=== PATIENT | female | born 1990 | race Caucasian/White ===

== ENCOUNTER 2024-01-23 06:24 | Emergency (ER) | payer MEDICAID, SELFPAY ==
[2024-01-23 06:25] VITALS: BP 136/96; PULSE 77; RESP 16; TEMP 36.3; O2SAT 100; BMI 28.6
--- NOTE | 2024-01-23 07:01 | EX.ED.DYSGE1 ---
HPI History of Present Illness Chief Complaint: Rash Detail of Chief Complaint: Generalized rash Informant: patient Onset/Context/Timing Onset: Weeks Context: Sudden Onset Timing: Continuous Quality: Generalized macular rash Location: Torso and extremities Current Severity: Moderate Maximum Severity: Moderate Worsened by: Unknown Relieved by: Nothing Associated Symptoms Associated Symptoms: None Narrative Narrative: Patient is a 33-year-old female who presents with a rash. She does complete a course of prednisone. When asked why she was on prednisone her response was they prescribed it to me. She denies fever, chills night sweats. She is pleasant on no medication. She has no allergies. She was instructed by the person to prescribe the prednisone not to shave her legs. She was instructed to change razors more frequently. Prior similar symptoms: No Recent Illness/Hospitalization: No PFSH PFSH Medical History no medical history no medical history Home Medications ?Medication ?Instructions ?Recorded ?Last Taken ?Type NK 01/23/24 Unknown History cephalexin 500 mg capsule 500 mg PO Q6 #28 CAPSULES 01/23/24 Unknown Rx sulfamethoxazole 800 1 tab PO BID #14 TABLETS 01/23/24 Unknown Rx mg-trimethoprim 160 mg tablet Allergy/AdvReac Type Severity Reaction Status Date / Time No Known Allergies Allergy Verified 01/23/24 06:25 Surgical History no surgical history no surgical history Social History Smoking Status: Never smoker ROS ROS ED Constitutional Constitutional ED: Denies chills, fever(s), subjective or sweats Gastrointestinal Gastrointestinal: Denies nausea or vomiting Musculoskeletal Musculoskeletal: Denies arthralgias or myalgias Integumentary Reports rash; Denies abscess or Abrasions EXAM Physical Exam Const Vital Signs: 01/23/24 06:25 Temperature 97.3 F L Temperature Source Temporal Pulse Rate 77 Respiratory Rate 16 Blood Pressure 136/96 H Blood Pressure Mean 109 Pulse Ox 100 Positive well nourished and well developed General Appearance ED: well developed and NAD HEENT Reports moist mucous membranes HEENT Narrative: Head is atraumatic normocephalic. Eyes PERRL and EOMs intact bilaterally Neck no lymphadenopathy, supple and no JVD Resp normal respiratory effort Cardio regular rate and regular rhythm Extremity Negative for normal to inspection Extremity Narrative: Rash consistent with folliculitis Neuro oriented x3 and CN's II-XII intact bilaterally Sensorium / Orientation: alert Skin Skin Narrative: Patient has a pustular rash noted on the extremities, torso. The lesions on the legs and arms have a hair follicle in the center of the lesion. There is no other abnormality noted. MDM MDM MDM Narrative Medical decision making narrative: Patient's rash consistent with folliculitis. There is no concern for cellulitis. There is no concern for allergy etc. Patient was treated with cephalexin and Bactrim. Discharge Plan Triage Chief Complaint: Rash ED Provider: Benjamín Schmitt Dx/Rx/DC Orders Clinical Impression: Folliculitis, Elevated blood-pressure reading, without diagnosis of hypertension Instructions: ED Folliculitis, ED Hypertension, To Be Confirmed Prescriptions: New sulfamethoxazole-trimethoprim 800-160 mg tablet 1 tab PO BID Qty: 14 0RF cephalexin 500 mg capsule 500 mg PO Q6 Qty: 28 0RF No Action NK Primary Care Provider: NOT,DEFINED Referrals: NOT,DEFINED [Primary Care Provider] - Doctor,Your [Non-Staff] - 3-5 Days if not improving Print Language: [place] Disposition Disposition: Home, Self Care
[2024-01-23 07:13] VITALS: BP 121/81; PULSE 73; RESP 16; TEMP 36.3; O2SAT 100
[2024-01-23] MEDS: Cephalexin 500 MG Capsule PO (07:13)
[2024-01-23] MEDS: Smz/Tmp Ds Tablet 1 TABLET PO (07:13)
== END 2024-01-23 07:16 | disposition home or self-care (01) ==
LOC: ED 07:13
PROVIDERS: Emergency Provider Emergency Medicine; PCP Family Medicine; Visit Provider Emergency Medicine
DX: L73.9 Follicular disorder, unspecified (principal); R03.0 Elevated blood-pressure reading, without diagnosis of hypertension
CPT/HCPCS: 99283